=== PATIENT | female | born 1940 | race Two or more races ===

== ENCOUNTER 2017-04-27 06:55 | Day surgery (SDC) | payer OTHER | END 2017-04-27 12:50 | disposition home or self-care (01) | LOC: AMB-ENDOS 06:55 | DX: K57.32 Diverticulitis of large intestine without perforation or abscess without bleeding (principal); K64.1 Second degree hemorrhoids; K57.30 Diverticulosis of large intestine without perforation or abscess without bleeding; K58.1 Irritable bowel syndrome with constipation ==